=== PATIENT | female | born 1945 | race Caucasian/White ===

== ENCOUNTER 2017-08-24 14:58 | Emergency (ER) | payer OTHER ==
[~2017-08-24] VITALS: Ht 172.7 cm; Wt 124.7 kg
[~2017-08-24 14:58] MED LIST: ASPIR 8181 MG PO; BLOOD PRESSURE; LIPITOR10 MG PO; LISINOPRIL20 MG PO; NITROGLYCERIN0.4 MG SUBLING
[2017-08-24 15:35] LABS: INFLUENZA A ANTIGEN None Detected (None Detect); INFLUENZA B ANTIGEN None Detected (None Detect)
[2017-08-24 16:17] LABS: HEMATOCRIT 38.1 % (37.0-47.0); HEMOGLOBIN 12.6 gm/dL (12.0-15.0); MCH 27.6 pg (26.0-34.0); MCV 83.5 fL (80.0-100.0); MPV 7.7 fl. (7.2-11.1); NUCLEATED RBCS 0 /100WBC; PLATELET COUNT* 223 thou/uL (150-400); RBC 4.56 mil/uL (4.20-5.00); RDW-CV 14.5 % (10.5-14.5); WBC 9.4 thou/uL (4.0-11.0)
[2017-08-24 16:33] LABS: ANION GAP 9 mmol/L (7-16); BUN 23 mg/dL (7-18); CALCIUM 8.5 mg/dL (8.5-10.1); CHLORIDE 103 mmol/L (98-107); CO2 28 mmol/L (21-32); CREATININE 1.3 mg/dL (0.6-1.3); GLUCOSE 114 mg/dL (70-99); POTASSIUM 4.2 mmol/L (3.5-5.1); SODIUM 140 mmol/L (136-145)
[2017-08-24 16:40] LABS: ALBUMIN 3.4 g/dL (3.4-5.0); ALKALINE PHOSPHATASE 64 U/L (46-116); SGOT 16 U/L (15-37); SGPT 21 U/L (30-65); TOTAL BILIRUBIN 0.5 mg/dL (<0.1-1.0); TROPONIN-I LEVEL <0.06 ng/mL (<0.06)
[2017-08-24 16:53] LABS: ABSOLUTE EOSINOPHILS 0.3 thou/uL (0.0-0.7); ABSOLUTE LYMPHOCYTES 0.8 thou/uL (0.8-5.3); ABSOLUTE MONOCYTES 0.6 thou/uL (0.0-1.2); ABSOLUTE NEUTROPHILS 7.8 thou/uL (1.6-8.1); PLATELET ESTIMATE ADEQUATE
[2017-08-24 17:21] VITALS: BP 137/67
--- NOTE | 2017-08-25 17:33 | EKG ---
[place] [address] ELECTROCARDIOGRAM REPORT Name: AILEEN REYNOLDS Room: [facility]#: [id number] Admission: 08/24/17 Attend Phys: Discharge: 08/24/17 Date of : 49 Report #: [id number] THIS REPORT FOR: //name// [facility] ED Test Date: 2017-08-24 Test Time: 16:11:35 Pat Name: AILEEN REYNOLDS Department: Room: Gender: F Integrated Specialist: Ana Paula CEJA : 1945 Requested By: Maria E Nelson Order Number: [id number] MD: Fermin Caal Measurements Intervals [place] Rate: 81 P: MT: QRS: 45 QRSD: 137 T: 8 QT: 383 QTc: 445 Interpretive Statements Sinus rhythm Right bundle branch block Baseline wander in lead(s) V5 Compared to ECG 02/25/2017 07:32:05 No significant changes noted Electronically Signed On 08-25-2017 17:32:46 RN ANTE PARTUM by Fermin Caal [email or web address] <ELECTRONICALLY SIGNED> By: Fermin Caal MD, [facility] 08/25/17 1732 161 10 Fermin Caal MD, FACC /EPI
--- NOTE | 2017-08-25 17:33 | EKG ---
[place] [address] ELECTROCARDIOGRAM REPORT Name: AILEEN REYNOLDS Room: 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 : 1945 Requested By: Maria E Nelson Order Number: [id number] Shemar MD: Fermin Caal Measurements Intervals [place] Rate: 80 P: 52 NV: 154 QRS: 44 QRSD: 134 T: 6 QT: 364 QTc: 420 Interpretive Statements Sinus rhythm Right bundle branch block Abnormal inferior Q waves Compared to ECG 02/25/2017 07:32:05 Inferior Q waves now present Q waves now present Electronically Signed On 08-25-2017 17:32:55 DIRECTOR BUILDING by Fermin Caal [email or web address] <ELECTRONICALLY SIGNED> By: Fermin Caal MD, [facility] 08/25/17 1732 1637 163 Fermin Caal MD, FACC /EPI
== END 2017-08-24 17:22 | disposition home or self-care (01) ==
LOC: M.ERS 14:58
PROVIDERS: Nurse Practitioner Family
DX: B34.9 Viral infection, unspecified (principal); R12 Heartburn; I10 Essential (primary) hypertension; K21.9 Gastro-esophageal reflux disease without esophagitis; Z88.5 Allergy status to narcotic agent

== ENCOUNTER 2019-04-27 10:12 | Emergency (ER) | payer OTHER ==
[~2019-04-27] VITALS: Ht 170.2 cm; Wt 113.4 kg
[2019-04-27 12:19] LABS: HEMATOCRIT 35.3 % (37.0-47.0); HEMOGLOBIN 11.8 gm/dL (12.0-15.0); MCHC 33.3 g/dL (28.0-37.0); MCV 84.2 fL (80.0-100.0); MPV 8.1 fl. (7.2-11.1); RBC 4.19 mil/uL (4.20-5.00); RDW-CV 14.8 % (10.5-14.5); WBC 11.7 thou/uL (4.0-11.0)
[2019-04-27 12:27] LABS: ANION GAP 8 mmol/L (7-16); BUN 27 mg/dL (7-18); CALCIUM 9.3 mg/dL (8.5-10.1); CHLORIDE 101 mmol/L (98-107); CO2 26 mmol/L (21-32); CREATININE 1.5 mg/dL (0.6-1.3); GLUCOSE 102 mg/dL (70-99); POTASSIUM 4.3 mmol/L (3.5-5.1); SODIUM 135 mmol/L (136-145)
[2019-04-27 12:38] LABS: ALBUMIN 3.8 g/dL (3.4-5.0); ALKALINE PHOSPHATASE 70 U/L (46-116); LIPASE 71 U/L (73-393); SGOT 21 U/L (15-37); SGPT 22 U/L (30-65); TOTAL BILIRUBIN 0.4 mg/dL (<0.1-1.0); TOTAL PROTEIN 7.2 g/dL (6.4-8.2); TROPONIN-I LEVEL <0.06 ng/mL (<0.06)
[2019-04-27] MEDS ORDERED: NORCO 5-325 TA1 EAC1 PO (13:49)
[2019-04-27 14:07] VITALS: BP 122/50
--- NOTE | 2019-04-27 14:40 | EKG ---
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
== END 2019-04-27 14:03 | disposition home or self-care (01) ==
LOC: M.ERS 10:12
PROVIDERS: Emergency Medicine Emergency Medical Services
DX: R07.89 Other chest pain (principal); M25.511 Pain in right shoulder; M25.561 Pain in right knee; K21.9 Gastro-esophageal reflux disease without esophagitis; E66.01 Morbid (severe) obesity due to excess calories; Z68.39 Body mass index [BMI] 39.0-39.9, adult; Z88.6 Allergy status to analgesic agent